=== PATIENT | female | born 1965 | race Caucasian/White ===

== ENCOUNTER → 2017-06-16 | Outpatient (CLI) | payer OTHER ==
[~2017-06-16] MED LIST: AMOCLA875 PO; CARV6.25 PO; OXYACE5T PO
== END | disposition home or self-care (01) ==
LOC: LAB EV 13:46
DX: R10.84 Generalized abdominal pain (principal)
CPT/HCPCS: 87338

== ENCOUNTER 2019-04-30 07:54 | Day surgery (SDC) | payer OTHER ==
[~2019-04-30] VITALS: Ht 167.6 cm; Wt 109.2 kg
[~2019-04-30 07:54] MED LIST changes: +Amlodipine Bes2.5 MG PO; +OMEPRAZOLE20 MG PO
[2019-04-30] MEDS ORDERED: WOMEN'S DAILY1 EAC1 (08:21)
[2019-04-30] MEDS ORDERED: [UNRECOGNIZED DRUG - OTHER] (08:21)
[2019-04-30] MEDS ORDERED: CBD OIL (08:22)
== END 2019-04-30 10:03 | disposition home or self-care (01) ==
LOC: ORSCSDS 07:54
PROVIDERS: Internal Medicine Gastroenterology
PROC: 0DB98ZX Excision of Duodenum, Via Natural or Artificial Opening Endoscopic, Diagnostic (ICD-10-PCS; principal; 2019-04-30 09:15)
PROC: 0DJD8ZZ Inspection of Lower Intestinal Tract, Via Natural or Artificial Opening Endoscopic (ICD-10-PCS; principal; 2019-04-30 09:15)
PROC: 0DB68ZX Excision of Stomach, Via Natural or Artificial Opening Endoscopic, Diagnostic (ICD-10-PCS; principal; 2019-04-30 09:15)
DX: K30 Functional dyspepsia (principal); K92.1 Melena; Z12.11 Encounter for screening for malignant neoplasm of colon; Z86.010 Personal history of colon polyps; K64.8 Other hemorrhoids; K57.30 Diverticulosis of large intestine without perforation or abscess without bleeding; I10 Essential (primary) hypertension; E78.5 Hyperlipidemia, unspecified; Z79.899 Other long term (current) drug therapy
CPT/HCPCS: 43239; G0105; 88305; 88342; J0330; J0461; J2405; J2704; J7120

== ENCOUNTER → 2020-05-31 | Outpatient (CLI) | payer OTHER ==
[~2020-05-31] MED LIST changes: +CBD OIL; +WOMEN'S DAILY1 EAC1; +[UNRECOGNIZED DRUG - OTHER]
== END | disposition home or self-care (01) ==
LOC: LAB SHORT 12:57 → LAB 12:57 → LAB FUT 05-03 16:50
DX: K29.70 Gastritis, unspecified, without bleeding (principal)
CPT/HCPCS: 87338

== ENCOUNTER 2022-12-23 17:09 | Emergency (ER) | payer OTHER ==
[~2022-12-23] VITALS: Ht 165.1 cm; Wt 105.2 kg
[2022-12-23 17:53] LABS: BASOPHILS ABSOLUTE AUTO 0.09 K/mm3 (0.00-0.23); BASOPHILS PERCENT AUTO 1 % (0-2); EOSINOPHILS ABSOLUTE AUTO 0.64 K/mm3 (0.00-0.68); EOSINOPHILS PERCENT AUTO 7 % (0-6); Hematocrit 46.2 % (33.0-51.0); Hemoglobin 15.4 g/dL (11.5-16.0); IMMATURE GRAN ABSOLUTE AUTO 0.02 K/mm3 (0.00-0.10); IMMATURE GRAN PERCENT AUTO 0 % (0-1); LYMPHOCYTES PERCENT AUTO 43 % (21-46); MONOCYTES ABSOLUTE AUTO 0.72 K/mm3 (0.16-1.47); MONOCYTES PERCENT AUTO 8 % (4-13); Mean Corpuscular HGB 30.7 pg (26.0-34.0); Mean Corpuscular HGB Conc 33.3 g/dL (31.5-36.5); Mean Corpuscular Volume 92 fL (80-100); Mean Platelet Volume 10.4 fL (9.1-12.4); NEUTROPHILS ABSOLUTE AUTO 3.47 K/mm3 (1.96-9.15); NEUTROPHILS PERCENT AUTO 40 % (41-73); Platelet Count 288 K/mm3 (150-400); RDW Coefficient Variation 13.1 % (11.7-14.2); RDW Standard Deviation 44.2 fL (35.1-46.3); Red Blood Cell Count 5.01 M/mm3 (3.80-5.20); White Blood Cell Count 8.64 K/mm3 (4.00-11.30)
[2022-12-23 18:23] LABS: Albumin/Globulin Ratio 1.2 (0.8-1.8); Bilirubin, Total 0.4 mg/dL (0.1-1.0); Bun/Creatinine Ratio 19.2 (12.0-20.0); Calcium, Blood 9.5 mg/dL (8.5-10.1); Creatinine, Blood 0.83 mg/dL (0.40-1.00); Globulin, Blood 3.4 g/dL (2.2-4.0); Potassium, Blood 4.2 mmol/L (3.5-5.5); Total Protein, Blood 7.4 g/dL (6.4-8.2)
[2022-12-23 19:44] LABS: Source, Urine Clean Catch
[2022-12-23 19:51] LABS: Appearance, Urine Clear (Clear); Bilirubin, Urine Neg (Neg); Blood, Urine Neg (Neg); Color, Urine Yellow (P-Yellow); Glucose Qualitative, Urine Neg (Neg); Ketones, Urine Neg (Neg); Leukocyte Esterase, Urine Neg (Neg); Nitrite, Urine Neg (Neg); Protein, Urine Neg (Neg); Urobilinogen, Urine NORM (Normal)
[2022-12-23] MEDS ORDERED: Prinivil10 MG PO (20:01)
[2022-12-23] MEDS ORDERED: PROBIOTIC1 EA14 (20:02)
[2022-12-23] MEDS ORDERED: MAGCIT300 (20:02)
[2022-12-23] MEDS ORDERED: FISH OIL 1,2001 EAC7 (20:02)
[2022-12-23] MEDS ORDERED: ERGO400 (20:02)
[2022-12-23] MEDS ORDERED: HYDMOR4 PO (21:22)
[2022-12-23 22:02] VITALS: BP 150/80
== END 2022-12-23 21:57 | disposition home or self-care (01) ==
LOC: ER 17:09
PROVIDERS: Physician Assistant
DX: R10.9 Unspecified abdominal pain (principal); Z88.8 Allergy status to other drugs, medicaments and biological substances; Z88.5 Allergy status to narcotic agent; Z88.7 Allergy status to serum and vaccine; Z79.899 Other long term (current) drug therapy
CPT/HCPCS: 80053; 81003; 85025; 96374; 96375; 99284-25; A9270; J1170; J1885; J2405

== ENCOUNTER → 2023-04-05 | Outpatient (CLI) | payer OTHER ==
[~2023-04-05] MED LIST changes: +ERGO400; +FISH OIL 1,2001 EAC7; +HYDMOR4 PO; +MAGCIT300; +PROBIOTIC1 EA14; +Prinivil10 MG PO
== END | disposition home or self-care (01) ==
LOC: LAB 14:21 → LAB SHORT 14:21
DX: D48.5 Neoplasm of uncertain behavior of skin (principal)
CPT/HCPCS: 88305

== ENCOUNTER → 2023-05-23 | Outpatient (CLI) | payer OTHER ==
[2023-06-02 12:00] LABS: HPV GENOTYPE 16 Not Detected; HPV GENOTYPE 18 Not Detected; HPV HIGH RISK Not Detected; HPV SOURCE Vaginal
== END ==
LOC: LAB SHORT 13:37 → LAB 13:37
PROVIDERS: Obstetrics & Gynecology
DX: Z01.419 Encounter for gynecological examination (general) (routine) without abnormal findings (principal)
CPT/HCPCS: 87624; G0123

== ENCOUNTER → 2023-07-09 | Outpatient (CLI) | payer OTHER ==
[2023-07-10 12:22] LABS: Stool Occult Bld Immuno 1 Negative (NEGATIVE)
== END | disposition home or self-care (01) ==
LOC: LAB SHORT 13:37 → LAB 13:37
PROVIDERS: Family Medicine
DX: Z12.11 Encounter for screening for malignant neoplasm of colon (principal)
CPT/HCPCS: G0328

== ENCOUNTER 2024-04-01 11:36 | Day surgery (SDC) | payer OTHER ==
[~2024-04-01] VITALS: Ht 167.6 cm; Wt 107.8 kg
[~2024-04-01 11:36] MED LIST changes: +Lactated Ringer's 1,000 ML IV ONE
[2024-04-01] MEDS ORDERED: propofoL 50 ML IV ONE (12:47)
[2024-04-01] MEDS ORDERED: Lactated Ringer's 1,000 ML IV ONE (12:55)
[2024-04-01] MEDS ORDERED: propofoL 20 ML IV ONE (13:22)
[2024-04-01 14:10] VITALS: BP 117/66
== END 2024-04-01 14:05 | disposition home or self-care (01) ==
LOC: ORSCSDS 11:36
PROVIDERS: Surgery
PROC: 0DJD8ZZ Inspection of Lower Intestinal Tract, Via Natural or Artificial Opening Endoscopic (ICD-10-PCS; principal; 2024-04-01 13:00)
DX: Z12.11 Encounter for screening for malignant neoplasm of colon (principal); Z86.0101 Personal history of adenomatous and serrated colon polyps; F41.9 Anxiety disorder, unspecified; I10 Essential (primary) hypertension; E78.5 Hyperlipidemia, unspecified; Z79.899 Other long term (current) drug therapy
CPT/HCPCS: J2704; J7120